=== PATIENT | female | born 2000 | race Caucasian/White ===

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

== ENCOUNTER 2019-05-28 02:01 | Emergency (ER) | payer OTHER ==
[2019-05-28] MEDS ORDERED: NS 0.9% 1000 ML** 1,000 ML IV ONE (02:03)
[2019-05-28] MEDS ORDERED: Pantoprazole IV* 40 MG IV ONE (02:05)
[2019-05-28] MEDS ORDERED: Ondansetron INJ* 2 MG/ML VIAL IV ONE (02:05)
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
[2019-05-28] MEDS ORDERED: Lorazepam PYXIS KEY PRN (02:40)
[2019-05-28] MEDS ORDERED: LORazepam INJ* 2 MG/ML 1 ML VIAL IV PUSH ONE (02:40)
[2019-05-28] MEDS ORDERED: Lorazepam PYXIS KEY ONE (02:49)
[2019-05-28 02:58] LABS: ABS Basophils 0.1 10^3/ul (0-0.2); ABS Eosinophils 0.1 10^3/ul (0-0.6); ABS Lymphocytes 2.6 10^3/ul (1.0-4.8); ABS Monocytes 0.5 10^3/ul (0-0.8); ABS Neutrophils 5.1 10^3/ul (1.5-7.7); Eosinophil % 1.2 %; Hematocrit 40 % (35-47); Hemoglobin 13.8 g/dL (12.0-16.0); Lymphocyte % 30.9 %; Mean Corpuscular HGB Conc 35 g/dL (31-36); Mean Corpuscular Hemoglobin 31 pg (27-31); Mean Corpuscular Volume 89 fL (80-97); Mean Platelet Volume 7.2 fL (7.4-10.4); Platelet Count 336 10^3/uL (150-450); Red Blood Count 4.48 10^6 /uL (3.70-4.87); Red Cell Distribution Width 14 % (10-15); White Blood Count 8.3 10^3/uL (3.5-10.8)
[2019-05-28 03:13] LABS: ALT 15 U/L (7-52); AST 16 U/L (13-39); Albumin 4.3 g/dL (3.2-5.2); Albumin/Globulin Ratio 1.6 (1-3); Alkaline Phosphatase 50 U/L (34-104); Anion Gap 11 mmol/L (2-11); BUN/Creatinine Ratio 16.4 (8-20); Blood Urea Nitrogen 10 mg/dL (6-24); CO2 Carbon Dioxide 24 mmol/L (22-32); Calcium 8.2 mg/dL (8.6-10.3); Chloride 107 mmol/L (101-111); EGFR African American 152.9 (>60); EGFR Non-African American 126.4 (>60); Globulin 2.7 g/dL (2-4); Glucose 114 mg/dL (70-100); Potassium 3.5 mmol/L (3.5-5.0); Sodium 142 mmol/L (135-145)
[2019-05-28 03:19] LABS: HCG Pregnancy < 0.60 mIU/mL
[2019-05-28 03:22] LABS: Acetaminophen < 15 mcg/mL; Alcohol 299 mg/dL (<10); Salicylate < 2.50 mg/dL (<30)
--- NOTE | 2019-05-28 07:14 | ED ---
Progress - Progress Note Progress Note: Patient is received as a sign out from Dr. Yan at 0700 05/28/19 pending sobriety. Re-Evaluation - Re-Evaluation First Eval Re-Evaluation Time: 08:51 Comment: Patient's friends are in waiting room and will provide sober safe ride home for the patient. Course/Dx - Course Course Of Treatment: Patient is a 18-year-old female who was signed out by Dr. Yan at shift change. The patient is here with alcohol intoxication. The patient is alert and oriented 3. The patient is ambulating with a good steady walk. The patient is tolerating fluids without any nausea and vomiting. Patient is discharged with a family member. The patient is hemodynamically stable alert and oriented 3. The patient is sober. Therefore, the patient was discharged home with follow-up with the primary care physician. - Diagnoses Provider Diagnoses: Acute alcohol intoxication, Head trauma Discharge ED - Sign-Out/Discharge Documenting (check all that apply): Patient Departure - discharge , Receiving Sign-Out Receiving patient FROM: Cara Yan - Discharge Plan Condition: Stable Disposition: HOME Patient Education Materials: Alcohol Intoxication (ED) Referrals: [facility] [Outside] - 3 Days Additional Instructions: PLEASE RETURN TO ED FOR ANY NEW OR CONCERNING SYMPTOMS. PLEASE FOLLOW UP WITH YOUR PRIMARY CARE PHYSICIAN WITHIN THREE DAYS. - Billing Disposition and Condition Condition: STABLE Disposition: Home - Attestation Statements Document Initiated by [place]: Yes Documenting Scribe: GABRIEL PIERCE Provider For Whom Brooklyn is Documenting (Include Credential): ELEUTERIO DIAZ MD Scribe Attestation: IGABRIEL, scribed for ELEUTERIO DIAZ MD on 05/28/19 at 1847. Scribe Documentation Reviewed: Yes Provider Attestation: The documentation as recorded by the GABRIEL wayne accurately reflects the service I personally performed and the decisions made by , ELEUTERIO DIAZ MD Status of Scribe Document: Viewed
[2019-05-28] MEDS ORDERED: Nicotine PATCH 14 MG/24 HR* PATCH TRANSDERM SCH (09:00)
[2019-05-28 09:13] VITALS: BP 128/83
== END 2019-05-28 09:12 | disposition home or self-care (01) ==
LOC: ED 02:01
DX: F10.129 Alcohol abuse with intoxication, unspecified (principal); Y90.8 Blood alcohol level of 240 mg/100 ml or more; R11.0 Nausea; S09.90XA Unspecified injury of head, initial encounter; S00.81XA Abrasion of other part of head, initial encounter; W10.9XXA Fall (on) (from) unspecified stairs and steps, initial encounter; Y92.9 Unspecified place or not applicable
CPT/HCPCS: 36415; 70450; 80053; 80320; 80329; 83605; 84484; 84702; 85025; 96361; 96374; 96375; 99283; G0480; J2060; J2405